=== PATIENT | male | born 1950 | race Caucasian/White ===

== ENCOUNTER → 2016-08-18 | Outpatient (CLI) | payer BC ==
[~2016-08-18] MED LIST: MULT-506 PO
--- NOTE | 2016-08-18 15:03 | DIAGNOSTIC IMAGING REPORT ---
L-SPINE MIN 4 VIEWS ROUTINE CLINICAL HISTORY: Right leg radiculopathy COMPARISON STUDY: No previous studies for comparison. FINDINGS: No acute fractures are visualized. There is a grade 1 spondylolisthesis of L4 and L5. There are moderate multilevel degenerative changes. There are prominent anterior osteophytes at the thoracolumbar junction. There is facet joint arthropathy within the lower lumbar levels. IMPRESSION: Moderate multilevel degenerative change. No acute fractures or subluxations are visualized. No destructive lesions are visualized on conventional radiographic imaging Electronically signed by: Stef Pires M.D. 08/18/2016 3:01 PM
== END | disposition home or self-care (01) ==
LOC: C.RAD 14:25
PROVIDERS: ATTEND Family Medicine
DX: M51.16 Intervertebral disc disorders with radiculopathy, lumbar region (principal)

== ENCOUNTER → 2016-10-04 | Outpatient (CLI) | payer BC ==
--- NOTE | 2016-10-04 14:29 | DIAGNOSTIC IMAGING REPORT ---
MRI LUMBAR SPINE W/O CONTRAST CLINICAL HISTORY: Left leg radiculopathy. TECHNIQUE: Sagittal and axial T1, T2 and STIR images were obtained. COMPARISON STUDY: Conventional radiographic study dated 08/18/2016 OBSERVATIONS: There are no suspicious areas of marrow replacement. For numbering purposes, I have assumed that there are 12 pain of well-defined ribs. 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 L1-2: No disc protrusions or extrusions. No evidence of spinal canal or neural foraminal compromise. L2-3: There is a circumferential disc bulge with mild spinal stenosis. L3-4: There is a circumferential disc bulge with mild spinal stenosis. L4-5: There is a circumferential disc bulge with minimal triangular spinal canal narrowing. L5-S1: There is a circumferential disc bulge with moderate spinal stenosis. There is facet joint arthropathy. The conus medullaris and cauda equina appear normal. IMPRESSION: 1. 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 Please see numbering system as annotated on the PACS images 2. Multilevel disc bulges with mild spinal stenosis the L2-3, L3-4, and L4-5 levels. Moderate spinal stenosis at the L5-S1 level. Again please note that this numbering scheme assumes that there is lumbarization of the S1 vertebra. Electronically signed by: Stef Pires M.D. 10/04/2016 2:28 PM Dictated Date/Time: 10/04/2016 2:19 PM
== END | disposition home or self-care (01) ==
LOC: C.MRI 13:22
PROVIDERS: ATTEND Physical Medicine & Rehabilitation
DX: M54.16 Radiculopathy, lumbar region (principal)

== ENCOUNTER → 2017-09-02 | Outpatient (CLI) | payer OTHER ==
--- NOTE | 2017-09-02 12:00 | DIAGNOSTIC IMAGING REPORT ---
CHEST 2 VIEWS ROUTINE HISTORY: R05 - COUGH COMPARISON: Chest 05/07/2016. FINDINGS: The heart remains borderline enlarged. The lungs are clear. No pleural effusions. No pneumothorax. IMPRESSION: No significant change compared to the prior study. No acute process. Electronically signed by: Alfonso Cuellar M.D. 09/02/2017 11:58 AM Dictated Date/Time: 09/02/2017 11:56 AM
== END | disposition home or self-care (01) ==
LOC: C.RAD1850 11:07
PROVIDERS: ATTEND Student in an Organized Health Care Education/Training Program
DX: R05 Cough (principal)

== ENCOUNTER → 2017-12-22 | Outpatient (CLI) | payer OTHER ==
--- NOTE | 2017-12-23 11:20 | PULMONARY FUNCTION TEST ---
Prebronchodilator spirometry suggests the presence of minimal small airways disease. There was a modest response to bronchodilator as evidenced by improved flow measured at low lung volumes. This may suggest the presence of early reversible airways disease. Lung volumes and diffusion capacity were not measured. Clinical correlation is needed.
== END | disposition home or self-care (01) ==
LOC: C.RC 12:46
PROVIDERS: ATTEND Family Medicine
DX: Z87.898 Personal history of other specified conditions (principal)

== ENCOUNTER 2023-10-19 05:16 | Observation (INO) ==
--- NOTE | 2023-09-29 10:25 | PAT Medication Instructions ---
Medication Instructions Date of Service September 29, 2023 Home Medications Medication Instructions Recorded Breo Ellipta 100 mcg-25 mcg/dose 1 inh inhalation DAILY #60 ea 06/01/23 powder for inhalation (fluticasone furoate-vilanterol) amlodipine 5 mg tablet (Norvasc) 5 mg PO QAM multivitamin 1 tab PO QAM cholecalciferol (vitamin D3) 50 mcg (2,000 unit) capsule (Vitamin D3) 50 mcg PO QAM Breo Ellipta 100 mcg-25 mcg/dose powder for inhalation (fluticasone furoate- vilanterol) 1 inh inhalation DAILY cetirizine 10 mg capsule (All Day Allergy (cetirizine)) 10 mg PO DAILY PRN allergy relief albuterol sulfate 90 mcg/actuation aerosol inhaler 1 inh inhalation QID PRN sob fluticasone propionate 50 mcg/actuation nasal spray,suspension (Flonase Allergy Relief) 1 spray intranasal DAILY levothyroxine 25 mcg tablet 25 mcg PO QAM losartan 50 mg tablet 50 mg PO QAM rosuvastatin 5 mg tablet 5 mg PO HS DO NOT take the morning of surgery multivitamin 1 tab PO QAM cholecalciferol (vitamin D3) 50 mcg (2,000 unit) capsule (Vitamin D3) 50 mcg PO QAM cetirizine 10 mg capsule (All Day Allergy (cetirizine)) 10 mg PO DAILY PRN allergy relief losartan 50 mg tablet 50 mg PO QAM Take morning of surgery With a small sip of water, OTHERWISE NOTHING TO EAT OR DRINK AFTER MIDNIGHT: amlodipine 5 mg tablet (Norvasc) 5 mg PO QAM Breo Ellipta 100 mcg-25 mcg/dose powder for inhalation (fluticasone furoate- vilanterol) 1 inh inhalation DAILY albuterol sulfate 90 mcg/actuation aerosol inhaler 1 inh inhalation QID PRN sob (use if needed; please bring with you to hospital day of surgery if possible) fluticasone propionate 50 mcg/actuation nasal spray,suspension (Flonase Allergy Relief) 1 spray intranasal DAILY levothyroxine 25 mcg tablet 25 mcg PO QAM Take evening before surgery cetirizine 10 mg capsule (All Day Allergy (cetirizine)) 10 mg PO DAILY PRN allergy relief (if needed) albuterol sulfate 90 mcg/actuation aerosol inhaler 1 inh inhalation QID PRN sob (if needed) rosuvastatin 5 mg tablet 5 mg PO HS Other Notes If you have any questions please call us at [phone] or [phone] or [phone] or [phone]
--- NOTE | 2023-10-03 09:48 | Anesthesiology Consultation ---
Date of Service October 03, 2023 Assessment & Plan (1) Encounter for pre-operative examination: - pulmonology office visit 08/04/23 [place]: "... optimized from a pulmonary perspective. He should continue to use his inhalers in the preoperative and perioperative periods. No indication for additional testing. He is appropriate to undergo anesthesia. We would be happy to assist should he develop any respiratory issues in the preoperative, perioperative, or postoperative periods. Early ambulation. DVT prophylaxis per orthopedic surgery..." - Outpatient joint assessment: Patient is currently scheduled for inpatient pathway. If re-evaluated and patient/surgeon requests outpatient pathway, patient is acceptable candidate for outpatient joint program from anesthesia standpoint pending surgeon's office assessment of pt motivation/support/completion of same day joint program preop requirements. Chart Review Chart Review: Acceptable Risk for Surgery and Patient seen in Pre Admission Testing Teaching & Discussion Pre-Anesthesia Teaching/Discussion Notes: Instructed NPO after midnight before surgery, except medications with 15 cc of water. Medication instructions provided according to the PAT guidelines. History Surgery Operation Date: 10/19/23 07:00 Proposed Procedures p Left Total Knee Arthroplasty - Sergey Douglas MD Height/Weight Height: 5 ft 7 in Weight: 85.3 kg Allergies Allergy/AdvReac Type Severity Reaction Status Date / Time Sulfa (Sulfonamide Allergy Intermediate RASH/REDNESS Verified 09/28/23 12:33 Antibiotics) ALL OVER BODY Penicillins Allergy Unknown listed in Verified 10/03/23 10:44 [facility] EMR Medications Home Medications Medication Instructions Recorded Confirmed Last Taken amlodipine 5 mg tablet (Norvasc) 5 mg PO QAM 11/28/18 09/28/23 07/12/22 multivitamin 1 tab PO QAM 11/28/18 09/28/23 07/12/22 cholecalciferol (vitamin D3) 50 50 mcg PO QAM 10/26/21 09/28/23 07/12/22 mcg (2,000 unit) capsule (Vitamin D3) Breo Ellipta 100 mcg-25 mcg/dose 1 inh inhalation DAILY #60 ea 06/01/23 09/28/23 Unknown powder for inhalation (fluticasone furoate-vilanterol) cetirizine 10 mg capsule (All Day 10 mg PO QPM 08/01/23 10/03/23 Unknown Allergy (cetirizine)) albuterol sulfate 90 mcg/actuation 1 inh inhalation QID PRN sob 09/28/23 09/28/23 Unknown aerosol inhaler fluticasone propionate 50 1 spray intranasal DAILY 09/28/23 09/28/23 Unknown mcg/actuation nasal spray,suspension (Flonase Allergy Relief) levothyroxine 25 mcg tablet 25 mcg PO QAM 09/28/23 09/28/23 Unknown losartan 50 mg tablet 50 mg PO QAM 09/28/23 09/28/23 Unknown rosuvastatin 5 mg tablet 5 mg PO HS 09/28/23 09/28/23 Unknown Past Medical History Medical History (Updated 10/03/23 @ 10:44 by Ashlyn Loja PA-C) Asthma controlled, stable per pt-has not used rescue inhaler for 6 months History of colitis 1 yr ago Hx of gout > 1 yr ago Hyperlipidemia Hypertension controlled, stable per pt Hypothyroidism new dx Lumbar stenosis L5- S1 Nodule of esophagus "benign" Right lumbar radiculopathy Spondylolisthesis of lumbosacral region Spondylolisthesis, lumbar region Patient denies h/o stroke, seizures, heart attack, heart failure, DM, blood clots/DVTs or blood transfusions. Exercise / Class Metabolic Activity II 4-5 Yardwork/Stairs/Walk up hill (denies chest discomfort or shortness of breath with 1 FOS) Past Family History Family History Sister Family history of diabetes mellitus Uncle Family history of esophageal cancer Grandmother (Paternal) Family history of diabetes mellitus Grandmother (Maternal) Family history of diabetes mellitus Family/Other Family history of diabetes mellitus cousins Hypertension Mother Hypertension Heart disease Grandfather Stroke Father Cancer Other Allergies Asthma No family history of adverse response to anesthesia No family history of bleeding disorder Past Surgical History Surgical History History of arthroscopy RT/LEFT KNEE History of colonoscopy History of open reduction and internal fixation (ORIF) procedure 1999--RT TIB/FIB History of surgery right femur fx 1961--pin placed, later removed Retinal tear of both eyes laser repair Status post epidural steroid injection numerous times Wylie teeth removed Past Anesthesia History No Hx of Anesthesia Complications and No Family Hx of Anesthesia Complications History of PONV No Hx of PONV and No Hx of Motion Sickness Social History Smoking Status: Never smoker Do You Dip or Chew Tobacco: No Hx Alcohol Use: Yes Alcohol type: beer and wine alcohol intake frequency: holidays/special occasions only substance use type: does not use Review of Systems Snoring, denies witnessed apneas. Patient denies chest pain, shortness of breath, dyspnea on exertion, reflux, fever, chills, cough, wheezing, or palpitations. Physical Exam Vital Signs Vitals BP 143/87 P 67 TEMP 98.4 SP02 94% on RA RESP 18 Physical Patient resting comfortably in chair in no acute distress, alert and oriented, responding appropriately throughout visit Full cervical extension range of motion without pain TMD 3.5 finger breadths Mallampati Score 2 Dentition: several crowns; denies chipped or loose teeth, implants or bridges Lungs: normal respiratory effort. Good air movement, clear throughout to auscultation, no adventitious breath sounds Cardiac: regular rate and rhythm, no murmurs noted Carotid arteries: negative bruit bilat Lab Results Anesthesia Preop Results Results Anesthesia Widget: WBC 8.31 K/ul (4.8-10.8) 10/03/23 Hgb 13.6 g/dl (14.0-18.0) L 10/03/23 Hct 40.9 % (42.0-52.0) L 10/03/23 Plt 199 K/uL (130-400) 10/03/23 PT 10.6 Seconds (9.0-12.0) 10/03/23 PTT 27 Seconds (21-31) 10/03/23 INR 1.0 (0.9-1.1) 10/03/23 Urine Color Yellow 10/03/23 Urine Appearance Clear (Clear) 10/03/23 Urine pH 6.0 (4.5-7.5) 10/03/23 Urine Specific [place] 1.005 (1.000-1.030) 10/03/23 Urine Protein Negative (Negative) 10/03/23 Urine Glucose (UA) Negative (Negative) 10/03/23 Urine Ketones Negative (Negative) 10/03/23 Urine Blood Negative (Negative) 10/03/23 Urine Nitrite Negative (Negative) 10/03/23 Urine Bilirubin Negative (Negative) 10/03/23 Urine Urobilinogen Negative (Negative) 10/03/23 Urine Leukocyte Esterase Negative (Negative) 10/03/23 Blood Type A Positive 10/03/23 Antibody Screen NEGATIVE 10/03/23 Testing Laboratory Results 09/07/23 SODIUM: 140 POTASSIUM: 4.6 CHLORIDE: 104 CO2: 30 BUN: 16 CREATININE: 1 GLUCOSE: 97 Electrocardiogram Date: 10/03/23 Sinus rhythm with marked sinus arrhythmia, rate 64 bpm Echocardiogram Date: 09/22/22 EF 65% No LV regional wall motion abnormalities Asymmetric basal septal hypertrophy of the elderly Grade I diastolic dysfunction Dilated ascending aorta 3.8 cm No significant valvular abnormalities
[~2023-10-19 05:16] MED LIST changes: +ALLERGY Noted to ORDERED Medication SCH; -MULT-506 PO
[2023-10-19] MEDS: LR 500ML BOLUS, THEN 15ML/HR IV SCH (05:45)
[2023-10-19] MEDS: LR 60ML/HR IV SCH (05:45)
[2023-10-19] MEDS ORDERED: ROPIVACAINE 0.5% 5 MG/ML 30 ML VIAL ONE (06:24)
[2023-10-19] MEDS ORDERED: fentaNYL citrate PF 100 MCG/2 ML VIAL ONE (06:30)
[2023-10-19] MEDS ORDERED: MIDAZOLAM HCL 1 MG/ML 2ML VIAL ONE (06:30)
[2023-10-19] MEDS ORDERED: PROPOFOL IV EMULSION 10 MG/ML 20 ML VIAL IV ONE ×3 (06:32→07:48)
--- NOTE | 2023-10-19 06:32 | History & Physical Bridge Note ---
Date of Service October 19, 2023 History & Physical Bridge Note I have examined the patient, reviewed the History & Physical and in the interval since the performance of the History & Physical I have noted the following changes of clinical significance:consent obtained/site verified. no changes noted
[2023-10-19] MEDS: ceFAZolin 2,000 MG/15 ML IV PUSH IV ONE (06:34)
[2023-10-19] MEDS ORDERED: HYDROmorphone INJ 1 MG/ML SYRINGE IV PRN ×2 (06:36→09:48)
[2023-10-19] MEDS ORDERED: KETOROLAC 30 MG/ML VIAL IV PRN (06:36)
[2023-10-19] MEDS ORDERED: ePHEDrine sulfate 50 MG/ML AMP IV PRN (06:36)
[2023-10-19] MEDS ORDERED: ATROPINE SULFATE 0.1 MG/ML 10ML SYR IV PRN (06:36)
[2023-10-19] MEDS ORDERED: ONDANSETRON INJ 2 MG/ML 2 ML VIAL IV PRN (06:36)
[2023-10-19] MEDS: TRANEXAMIC ACID 1,000 MG **IV Pre-op IV SCH (06:41)
[2023-10-19] MEDS: ceFAZolin 2000MG 2,000 MG/15 ML SYR IV SCH ×2 (06:56→14:58)
[2023-10-19] MEDS ORDERED: ONDANSETRON INJ 2 MG/ML 2 ML VIAL ONE ×2 (07:15)
[2023-10-19] MEDS: ORTHO JOINT ANESTHETIC ONE (07:28)
[2023-10-19] MEDS: TRANEXAMIC ACID 1,000 MG **IV Intra-op IV SCH (08:00)
[2023-10-19] MEDS: ROPIVACAINE 0.5% HCL/PF 246 MG, Ketorolac (*for OR use only*) 30 MG, EPINEPHrine 30MG/3... INFIL SCH (08:25)
--- NOTE | 2023-10-19 08:32 | Post Operative Brief Note ---
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
--- NOTE | 2023-10-19 08:35 | Operative Report ---
Post Operative Report Pre & Post Diagnosis Operation Date: 10/19/23 07:00 <No data on this case meets the specified criteria> Osteoarthritis left knee with flexion varus deformity pre and postop diagnosis same I identified the patient and participated in the time-out.: Yes Procedure Operation Date: 10/19/23 07:00 <No data on this case meets the specified criteria> Cemented left total knee replacement Surgeon Sergey Douglas MD Alarm Service Technician ELA/has been Estimated Blood Loss 25 Findings Consistent with Post-Op Diagnosis Grade 4 disease flexion varus deformity Fluids 1400 cc Specimens Bone pathology Drains None Complications None Indications Severe pain failed conservative management over the years Description of Procedure After the patient was appropriate notified site verified consent verified antibiotics confirmed to be given the left lower extremity was prepped and draped use routine fashion and a tourniquet inflated to 275 mmHg after [place] limb with a rubber Esmarch bandage for total of 52 minutes. Midline exposure was utilized parapatellar throughout any performed synovectomy completed. Distal femur entered after osteophytes removed. Cruciates resected tibia subluxated. Remaining meniscal remnants removed. Distal femur cut at 11 mm proximal tibia 4 mm the extension and flexion gaps were excellent with a 6 mm spacer. The femur was sized to a size 6 appropriate cutting block applied and the anterior posterior, chamfer cuts then made flexion gap was checked and was excellent. Posterior capsule was then injected with Ortho mix. The box cut was then made to size a 6 well. The tibia was then subluxated and broached and reamed to a size 6. 6 mm spacer posterior cruciate substituting allowed excellent range of motion and excellent tracking of the patella good midrange and full flexion stability and full extension. The patella was then resurfaced resecting about 10 mm. Trial holes were made in the patella seating button tracked well. Ortho mix was then injected all about the knee the area was then irrigated after all trial implants were removed with Betadine and soaked for about a minute and then Pulsavac and then the permanent cemented in position tibia femur patella in that order at 12 minutes the tourniquet was deflated at 14 minutes the knee was inspected no cement removal was required the trial s pacer was removed the wound was irrigated with Pulsavac Betadine and then the permanent liner seated in the knee reduced and closed at 40 degrees of flexion with #2 Vicryl 2-0 Vicryl and standstill clips appropriate dressing applied the patient transferred recovery in satisfactory condition having tolerated the procedure well. Summary of implants size 6 left femur size 6 rotating platform tray size 41 patella 6 x 6 mm rotating platform insert this is the ATT UNE total knee system from [employer]. DVT prophylaxis per protocol to start tomorrow. I attest to the content of the Intraoperative Record and any orders documented therein. Any exceptions are noted below.
--- NOTE | 2023-10-19 08:38 | Discharge Summary ---
Date of Service October 20, 2023 Admission HPI Per Admitting Provider Severe left knee pain admitted for elective left total knee replacement Principal Diagnosis Osteoarthritis with flexion varus deformity left knee Discharge Data Allergies Allergy/AdvReac Type Severity Reaction Status Date / Time Sulfa (Sulfonamide Allergy Intermediate RASH/REDNESS Verified 10/19/23 05:35 Antibiotics) ALL OVER BODY Vaccinations None Consultations None Procedures Performed Operation Date: 10/19/23 07:00 Actual Procedures p Left Total Knee Arthroplasty(Left) - Sergey Douglas MD Ordered Studies 10/19/23 05:00 US - OR guided needle placemen Routine Hospital Course (1) Status post left knee replacement: Care management pathway for total knee replacement Total Time Total Time Spent Total Time Spent (In Minutes): 5 minutes Discharge Plan Discharge Items Reason For Visit: Left Knee Degenerative Joint Disease Discharge Diagnosis: Same Condition on Discharge: Good Activity: Per Instructions section Lifting: Wait until after follow-up appointment Bathing: Keep incision dry Sexual Activity: Wait until after follow-up appointment Exercise/Sports: Wait until after follow-up appointment Weightbearing: Left weightbearing Non-emergency contact: Surgeon Call non-emergency contact if: your temperature is above 101.5, your wound has increased redness and your wound has increased drainage Follow-up/Referrals: Altaf Vaughn DO [Primary Care Provider] - Mike Muñoz PA-C [Physician Sterile Products Processor] - 11/03/23 3:00 pm Diet: Regular and Carb Consistent or DM2 Addtl Attending Provider Instructions: New Medicine: * You will likely be taking one or more of these medications: 1. Percocet - Take, as directed, when you need it, every four to six hours to control your pain. 2. Iron Sulfate - Take three times each day for the month after surgery to help you replace the blood lost during surgery. 3. Eliquis - Thins your blood to lessen the chance of forming a blood clot. * The most common side effects of pain medicine and iron are nausea and constipation. If nausea or constipation is too much of a problem or if you have any questions about your new medicines or doses, call [facility] at . We will try to help you manage these issues. "VERY IMPORTANT TO READ AND REVIEW" Blood Clots and Blood Thinning Medicine: * You are given Eliquis during the immediate post-operative period to lessen the risk of blood clots forming in your legs and/or lungs. Eliquis is usually given for 2-4 weeks after surgery. Pain: * The immediate post-operative period after knee replacement surgery is often quite painful. * You are given a prescription for pain medicine. You should take it, as directed, when you need it, especially before physical therapy and before going to bed. Pain that interferes with sleep is very common and can last several months. * You will likely need pain medicine for the first four to six weeks. It will not stop all of the pain. The pain will lessen and as you feel better, you may change to milder pain medicine such as Tylenol. * The most common side effects of pain medicine are nausea and constipation, so don't take more than you need. Physical Therapy: * You will have physical therapy two or three times each week for four to six weeks after your surgery in order to regain your knee range of motion and to retrain your knee to work properly. * It is just as important to make sure you are getting your knee perfectly straight as it is to regain your knee bend. * Taking a pain pill an hour before therapy can help you have a more productive and comfortable therapy session if needed. Home Exercise: * You were shown a series of exercises (heel props, heel slides, etc.) in the hospital. Do these exercises three to four times each day including the exercises you were shown in physical therapy. Walking: * Get up and walk several times each day. For the first four weeks, try not to stand or walk for more than one hour at a time. If you do stand or walk for more than one hour, you will not hurt anything, but your knee and leg will likely swell. * As you feel comfortable, you may change from the walker or crutches to a cane and then to independent walking. SELF CARE INSTRUCTIONS AFTER TOTAL KNEE REPLACEMENT A. You may need to continue a physical therapy program after discharge from the hospital. There are several options available to you. Your doctor will assist you in selecting the best one for you. 1. An out-patient facility 2 to 3 times a week for therapy or home therapy. 2. Continue working on all exercises taught to you in the hospital. Your goals should be to increase bending of your knee to 90 degrees and beyond and to fully straighten your knee. B. You may progress at your own pace from walking with a walker or crutches to a cane; then to no assistive devices. C. Make walking a part of your daily routine. Be up as much as comfortable with rest periods throughout the day. Rest with leg elevation is very important. Use the ice wrap frequently for the first 3-4 weeks. D. There are no restrictions on activities. You may ride in a car, shop, participate in systems design engineer and all social activities. E. Wear the long elastic stockings (MARLENI hose) 20 hours a day for six weeks after surgery. They can be removed several times a day for laundering and for a shower. F. Do not place a pillow behind your knee when resting. A pillow at your ankle is okay. VERY IMPORTANT TO READ AND REVIEW A. Take Eliquis (blood thinning medications) as directed by your doctor. Take as prescribed. B. There are a few signs you need to watch for after you are home. Call [facility] if you notice any of the followin. Increased severe knee pain. Some pain is expected especially when you exercise. 2. Increased swelling in your leg or knee; pain or swelling of the calf muscle in either lower leg. 3. Any fluid drainage from the incision. 4. Shortness of breath or chest pain. C. Please call [facility] at if you have any concerns or questions about your operation or recovery. The doctor or his nurse will return your call promptly. D. You must take antibiotics before dental work, bladder, bowel or other surgery. Call the office to obtain a prescription at least 2 days prior to your appointment. * CALL IF INCREASED PAIN, REDNESS, DRAINAGE OR FEVER GREATER THAT 101. * Sutures should be removed 12-14 days after surgery unless you are on chronic steriods, then it will be 14-18 days after surgery. Call your doctor if: * Temperature above 101 degrees F. * Pain not relieved by pain medicine ordered. * Increased drainage or redness from incision. * Notify your doctor with any questions or concerns. Pending Studies at Discharge: Yes (Bone pathology) Stand-Alone Forms: My [facility] Medications and DC Order Prescriptions: No Action fluticasone furoate-vilanterol [Breo Ellipta] 100-25 mcg/dose blister with device 1 inh inhalation DAILY Qty: 60 2RF All Day Allergy (cetirizine) 10 mg capsule 10 mg PO QPM multivitamin Tablet 1 tab PO QAM amlodipine [Norvasc] 5 mg Tablet 5 mg PO QAM cholecalciferol (vitamin D3) [Vitamin D3] 50 mcg (2,000 unit) Capsule 50 mcg PO QAM Patient Comments: none for last week or two losartan 50 mg Tablet 50 mg PO QAM levothyroxine 25 mcg Tablet 25 mcg PO QAM albuterol sulfate 90 mcg/actuation Hfa Aerosol Inhaler 1 inh INHALATION QID PRN (Reason: sob) fluticasone propionate [Flonase Allergy Relief] 50 mcg/actuation [place],Suspension 1 spray INTRANASAL DAILY Rx Instructions: administer into each nostril rosuvastatin 5 mg Tablet 5 mg PO HS Admission Data Admit Date/Time: 10/19/23 08:48 Attending Provider: Sergey Douglas Admit Provider: Sergey Douglas Primary Care Provider: Altaf Vaughn Other Providers: [facility],Home Health
--- NOTE | 2023-10-19 08:39 | Orthopedic Progress Note ---
Date of Service October 19, 2023 Orthopedic Progress Note Status post left total knee replacement tolerated well with with no complaints of chest pain shortness breath fever chills nausea vomiting headache. Vital signs are stable he is afebrile. Wound dressing clean dry and intact. X- rays pending. Assessment doing well status post total knee replacement. Attempted to contact and she did not answer the phone left a voicemail message.
--- NOTE | 2023-10-19 08:50 | Operative Report ---
Post Operative Report Pre & Post Diagnosis Operation Date: 10/19/23 07:00 Pre-Op Diagnosis: Left Knee Degenerative Joint Disease Post-Op Diagnosis: Left Knee Degenerative Joint Disease I identified the patient and participated in the time-out.: Yes Procedure Operation Date: 10/19/23 07:00 Actual Procedures p Left Total Knee Arthroplasty(Left) - Sergey Douglas MD Surgeon Sergye Douglas MD [employer] ELA/has been Estimated Blood Loss 25 Findings Consistent with Post-Op Diagnosis Same as postoperative diagnosis. Specimens The resected portions of the femur and the tibia. Description of Procedure Please see detailed operative note. I attest to the content of the Intraoperative Record and any orders documented therein. Any exceptions are noted below.
--- NOTE | 2023-10-19 09:05 | XRay Report ---
XR knee LT 1 or 2V routine CLINICAL HISTORY: S/P L TKA TECHNIQUE: 2 views of the left knee were obtained. Comparison: Comparison is made to knee radiograph 10/03/2023 FINDINGS: Patient is status post total knee arthroplasty with expected postsurgical changes including soft tiss ue swelling and subcutaneous emphysema. No periarticular lucency or hardware fracture is seen. IMPRESSION: Expected postoperative appearance status post placement of total knee arthroplasty. ACT 112: Negative or not required by law. Electronically signed by: Flavio Farris M.D. 10/19/2023 9:03 AM
[2023-10-19] MEDS ORDERED: TAMSULOSIN HCL 0.4 MG CAP PO PRN (09:48)
[2023-10-19] MEDS ORDERED: HYDROmorphone INJ 0.5 MG/0.5 ML SYR IV PRN (09:48)
[2023-10-19] MEDS ORDERED: NON-FORMULARY MEDICATION (Multivitamin Tablet) PO SCH (09:48)
[2023-10-19] MEDS ORDERED: oxyCODONE HCL IR 5 MG TAB (IMMEDIATE RELEASE) PO PRN (09:48)
[2023-10-19] MEDS ORDERED: METOCLOPRAMIDE HCL INJ 5 MG/ML 2 ML VIAL IV PRN (09:48)
[2023-10-19] MEDS ORDERED: bisacodyL 10 MG SUPP PR PRN (09:48)
[2023-10-19] MEDS ORDERED: ALBUTEROL HFA 8 GM INHALER INH PRN (09:48)
[2023-10-19] MEDS ORDERED: MAGNESIUM HYDROXIDE SUSP 30 ML UDC PO PRN (09:48)
[2023-10-19] MEDS ORDERED: NALOXONE HCL 0.4 MG/1 ML VIAL/CARP IV PRN (09:48)
--- NOTE | 2023-10-19 09:58 | Anesthesiology Progress Note ---
Date of Service October 19, 2023 Anesthesia Post Procedure Vital Signs Vital Signs: Temp Pulse Pulse Resp BP Pulse Ox O2 Del Method 10/19/23 09:40 36.3 C L 57 L 17 122/62 95 Room Air 10/19/23 09:30 36.3 C L 59 L 14 119/67 95 Room Air 10/19/23 09:20 58 L 24 115/64 97 Oxymask 10/19/23 09:10 59 L 14 124/67 99 Oxymask 10/19/23 09:00 57 L 16 123/62 96 Oxymask 10/19/23 08:50 80 17 116/64 97 Oxymask 10/19/23 08:42 36.5 C 68 16 117/65 97 Oxymask 10/19/23 05:37 36.5 C 66 18 148/83 H 96 Room Air O2 Flow Rate 10/19/23 09:40 10/19/23 09:30 10/19/23 09:20 3 10/19/23 09:10 3 10/19/23 09:00 4 10/19/23 08:50 4 10/19/23 08:42 5 10/19/23 05:37 Transfer of Care Handoff Completed per policy Notes Mental Status: alert / awake / arousable Patient Amnestic to Procedure: Yes Nausea / Vomiting: adequately controlled Pain: adequately controlled Airway Patency, RR, SpO2: stable & adequate BP & HR: stable & adequate Hydration State: stable & adequate Neuraxial Anesthesia: was administered and sensory block is resolving Anesthetic Complications: no major complications apparent
[2023-10-19] MEDS: SODIUM CHLORIDE 0.9% 1,000 ML IV SCH (10:04)
[2023-10-19] MEDS: FLUTICASONE PROPIONATE NA SPR 16 GM BTL NAE SCH (10:38)
[2023-10-19] MEDS: FLUTICASONE/VILANTEROL 100/25MCG 14 PUFFS/INHALER INH SCH (10:40)
[2023-10-19] MEDS: LEVOTHYROXINE SODIUM 25 MCG TABLET PO SCH (10:40)
[2023-10-19] MEDS: LOSARTAN POTASSIUM 50 MG TAB PO SCH (10:41)
[2023-10-19] MEDS: MULTIVITAMIN TAB PO SCH (10:41)
[2023-10-19] MEDS: amLODIPine BESYLATE 5 MG TAB PO SCH (10:41)
[2023-10-19] MEDS: CHOLECALCIFEROL 25 MCG (1000 UNITS) TAB PO SCH (10:42)
[2023-10-19] MEDS: DOCUSATE SODIUM 100 MG CAP PO SCH (10:42)
[2023-10-19] MEDS: KETOROLAC 30 MG/ML VIAL IV SCH (10:42)
--- OUTSIDE RECORDS SUMMARY | 2023-10-19 11:58 | External Medical Summary | Continuity of Care Document ---
Author Name Unknown Organization [facility] [address] [place] [id number] Care Team Providers Care Marzipan Maker Name Role Phone Altaf Vaughn Primary Care Physician [phone] Encounter [facility] [id number] Date(s): 10/12/23 - 10/12/23 [facility] [address] [address] [phone] Encounter Diagnosis Encounter for preoperative assessment(Discharge Diagnosis) - 10/12/23 DJD (degenerative joint disease) of knee(Discharge Diagnosis) - 10/12/23 Benign essential HTN(Discharge Diagnosis) - 10/12/23 Acquired hypothyroidism(Discharge Diagnosis) - 10/12/23 Anemia(Discharge Diagnosis) - 10/12/23 Hyperlipidemia(Discharge Diagnosis) - 08/22/23 Elevated TSH(Discharge Diagnosis) - 08/22/23 Prostate cancer screening(Discharge Diagnosis) - 08/22/23 History of BPH(Discharge Diagnosis) - 08/22/23 Discharge Disposition: Home or Self Care Attending Physician: DO Vaughn Franklin J Allergies, Adverse Reactions, Alerts Substance Reaction Severity Status PCN (penicillin) hives Resolved shellfish Gout Moderate Resolved sulfa drugs erythema of skin Active Assessment and Plan Extracted from: Title:General Exam * Author:DO Vaughn Franklin J Date:10/12/23 Impression and Plan Diagnosis Encounter for preoperative assessment ([id number] Z01.818, Discharge, Medical). Elevated TSH (FBQ24-JV R79.89, Discharge, Medical). DJD (degenerative joint disease) of knee (PSX45-ZD M17.9, Discharge, Medical). Benign essential HTN (OON98-YG I10, Discharge, Medical). Acquired hypothyroidism (LOA02-MO E03.9, Discharge, Medical). Plan: Preoperative Exam Reassuring/negative cardiovascular review of systems, normal resting echocardiogram October,. He is appropriate for the proposed procedure without further testing. Hypothyroidism (new) Continue levothyroxine 25 mcg daily Will check TSH and free T4 approximately 2-4 weeks postoperative Likely will need further titration of his Synthroid thereafter Systolic murmur Murmur is again heard today, although echocardiogram last year showed no significant valvular pathology Does have very mild ascending aortic dilatation (3.8) Will schedule follow-up echocardiogram later this spring/early summer HTN Excellent control BMP completed here in late August 2023 demonstrated preserved renal function and normal serum potassium Lymphocytotic colitis Gastroenterology note reviewed Avoid NSAIDs postoperative Borderline anemia His hemoglobin at the hospital lab was 13.6; while this would be normal according to our lab reference values, was marked as low based on the hospital reference values Nonconcerning but will follow-up; discussed this may improve now that he is on thyroid supplementation; also discussed he may have a mild postoperative drop Recheck CBC when we recheck his TSH; discussed that it may take 3-6 months to normalize . Orders PowerOrders Laboratory: CBC w Platelets and Diff Request (Order): Routine, 10/12/2023 14:18 EST, Requested Timeframe In 4 Weeks Free T4 Request (Order): Routine, 10/12/2023 14:18 EST, Requested Timeframe In 4 Weeks TSH Request (Order): Routine, 10/12/2023 14:18 EST, Requested Timeframe In 4 Weeks Patient Care Ambulatory: Follow Up Appointment Ambulatory (Order): PRN, thyroid/anemia Appointment Type In Office, 20, Follow up With DO Roderick, Altaf Stevenson, early December Evaluation and Management: [id number] Outpatient Consult Lv 3 (Order): 10/12/2023 14:19 EST, 25, FAMILY MEDICINE, DJD (degenerative joint disease) of knee | Benign essential HTN | Acquired hypothyroidism | Anemia, FS, (30-39 Mins). Immunizations Given and Recorded Vaccine Date Status Refusal Reason influenza virus vaccine, inactivated 06/14/23 Lai rded influenza virus vaccine, inactivated 06/30/22 Give n influenza virus vaccine, inactivated 05/18/21 Give n influenza virus vaccine, inactivated 06/13/20 Lai rded influenza virus vaccine, inactivated 06/11/19 Give n influenza virus vaccine, inactivated 06/07/18 Give n influenza virus vaccine, inactivated 08/09/17 Give n SARS-CoV-2 (COVID-19) mRNA BNT-162b2 vax 1 07/06/21 Recorded SARS-CoV-2 (COVID-19) mRNA BNT-162b2 vax 2 05/15/21 Recorded SARS-CoV-2 (COVID-19) mRNA BNT-162b2 vax 3 11/13/20 Recorded SARS-CoV-2 (COVID-19) mRNA BNT-162b2 vax 4 10/23/20 Recorded zoster vaccine, inactivated 5 06/25/20 Recorded zoster vaccine, inactivated 6 03/31/20 Recorded tetanus/diphtheria/pertuss, acel (Tdap) 05/07/16 G iven tetanus/diphtheria/pertuss, acel (Tdap) 05/19/06 R ecorded pneumococcal 13-valent vaccine 05/07/16 Given pneumococcal 23-valent vaccine 05/02/15 Given hepatitis A adult vaccine 03/30/10 Recorded hepatitis A adult vaccine 12/29/06 Recorded zoster vaccine live 03/11/10 Recorded 1Result Comment: 2022-09-15: Historical information-source unspecified 2Result Comment: 2022-09-15: Historical information-source unspecified 3Result Comment: 2022-09-15: Historical information-source unspecified 4Result Comment: 2022-09-15: Historical information-source unspecified 5Result Comment: 2022-09-15: Historical information-source unspecified 6Result Comment: 2022-09-15: Historical information-source unspecified Medications Albuterol (Eqv-ProAir HFA) 90 mcg/inh inhalation aerosol Start: 04/29/22 12:01:00 EDT, See Instructions, Disp# 8.5 g, Refills: 3, INHALE 2 PUFFS BY MOUTH FOUR TIMES A DAY NEEDED FOR WHEEZING, Pharmacy: [id number] Start Date: 04/29/22 Status: Ordered amLODIPine 5 mg oral tablet Start: 05/02/23 9:26:00 EDT, See Instructions, Disp# 30 tab, Refills: 11, TAKE 1 TABLET BY MOUTH EVERY DAY, Pharmacy: [id number] Start Date: 05/02/23 Status: Ordered Breo Ellipta 100 mcg-25 mcg/inh inhalation powder INHALE 1 PUFF BY MOUTH EVERY DAY Start Date: 03/21/23 Status: Ordered Centrum Silver oral tablet Start: 04/13/13 9:00:00, , 1 tab, PO, Daily Start Date: 04/13/13 Status: Ordered cetirizine 5 mg oral tablet Start: 01/31/23 11:46:00 EDT, 1 tab, PO, Daily, PRN: as needed for allergy symptoms Start Date: 01/31/23 Status: Ordered Flonase 50 mcg/inh nasal spray Start: 03/27/21 11:36:00 EDT, 1 spray, each nostril, bid Start Date: 03/27/21 Status: Ordered fluticasone-vilanterol 100 mcg-25 mcg/inh inhalation powder Start: 09/16/23 14:02:00 EST Start Date: 09/16/23 Status: Ordered losartan 50 mg oral tablet Start: 05/02/23 9:26:00 EDT, See Instructions, Disp# 30 tab, Refills: 11, TAKE 1 TABLET BY MOUTH EVERY DAY, Pharmacy: [id number] Start Date: 05/02/23 Status: Ordered rosuvastatin 5 mg oral tablet Start: 05/02/23 9:24:00 EDT, See Instructions, Disp# 30 tab, Refills: 11, TAKE 1 TABLET BY MOUTH ATBEDTIME, Pharmacy: [id number] Start Date: 05/02/23 Status: Ordered Synthroid 25 mcg (0.025 mg) oral tablet Start: 09/16/23 9:46:00 EST, 1 tab, PO, Daily, Disp# 30 tab, Refills: 3, Pharmacy: [id number] Start Date: 09/16/23 Stop Date: 01/14/24 Status: Ordered Mental Status 10/12/23 Barriers to Learning one year None evide nt Mandatory Health Literacy Documentation Yes Health Literacy Communication Barriers N ever Primary Language Mongolian Problem List Condition Confirmation Course Effective Dates Status H ealth Status Informant BPPV (benign paroxysmal positional vertigo) Confirmed Active Cataracts, bilateral Confirmed Active Diarrhea Confirmed Active HTN (hypertension) Confirmed Active Hypothyroid Confirmed Active Knee pain 1 Confirmed 06/04/11 Active Knee pain 2 Confirmed Active LBP (low back pain) Confirmed Active Leg length discrepancy Confirmed Active Lumbar facet joint pain Confirmed Active Spondylolisthesis, lumbar region Confirmed Active Asthma, mild intermittent Confirmed Active Nocturia Confirmed Active Osteoarthritis of left knee Confirmed Active Stenosis of lumbosacral spine Confirmed Active Weight disorder Confirmed Active 1Left 2left Diagnosis Diagnosis Type Effective Dates Health Status Clinical Service Informant Hyperlipidemia Discharge Diagnosis 08/22/23 Non-Specified History of BPH Discharge Diagnosis 08/22/23 Non-Specified Elevated TSH Discharge Diagnosis 08/22/23 Non-Specified Prostate cancer screening Discharge Diagnosis 08/22/23 Non-Specified DJD (degenerative joint disease) of knee Discharge Diagnosis 10/12/23 Non-Specified Encounter for preoperative assessment Discharge Diagnosis 10/12/23 Non-Specified Acquired hypothyroidism Discharge Diagnosis 10/12/23 Non-Specified Anemia Discharge Diagnosis 10/12/23 Non-Specified Benign essential HTN Discharge Diagnosis 10/12/23 Non-Specified Procedures Procedure Date Related Diagnosis Body Site Status Colonoscopy 1 12/16/22 Completed Ultrasound--abdomen 2 11/23/22 Com pleted Laryngoscopy 3 12/15/21 Completed Hydrogen breath test with lactose 4 03/09/21 Completed X-ray of lower leg for bone length measurement 5 07/30/20 Completed Lumbar epidural steroid injection 05/28/20 Completed Punch biopsy of skin 6 01/25/19 Co mpleted Injection into lumbar epidural space 12/11/18 Completed Radiography of spine (procedure) 12/11/18 Completed Unknown 12/11/18 Completed Magnetic resonance imaging o f lumbar spine without contrast (procedure) 10/25/18 Completed Chest X-ray 7 07/17/18 Completed Plain chest X-ray (procedure) 07/17/18 Completed PFT 8 12/22/17 Completed Chest x-ray 9 09/02/17 Completed Colonoscopy 10 08/21/15 Completed Excision of semilunar cartil age of knee 10/05/11 Completed colonoscopy 09/15/04 Completed titanium edward right leg 12/14/99 Co mpleted Knee surgery Completed Leg Surgery (ORIF ankle, right) Completed right femur and tib/fib fxs Completed wisdom teeth Completed 1Impression: The rectum, sigmoid colon, descending colon, splenic flexure, transverse colon, hepaticflexure, ascending colon, cecum, ileocecal valve, recto-sigmoid colon and terminal ileum are normal. Biopsied. Pathology: Random colon bx: Colonic mucosa with mild epithelial lymphocytosis, favor lymphocytic colitis. 2No acute sonographic abnormality is identified. 31 mm very anterior vocal cord nodules 4Negative 51. Old post traumatic and postsurgical changes involving the right leg. 2. Leg length discrepancy with the left lower extremity measuring 21 mm longer than the right. 6central midline back 7Negative chest 8Prebronchodilator spirometry suggests the presence of minimal small airways disease. There was a modest response to bronchodilator as evidenced by improved flow measured at low lung volumes. This maysuggest the presence of early reversible airways disease. Lung volumes and diffusion cappacity werenot measured. Clinical correlation is needed. 9Impression: No significant change compared to the prior study no acute process 10COLO to cecum normal, repeat colo 10 yeaars. Results Laboratory List Name Date Comprehensive Metabolic Panel. (Comprehe nsive Metabolic Panel-[facility]) 08/22/23 Free T4. (Free T4-[facility]) 08/22/23 Lipid Panel. (Lipid Panel-[facility]) 08/22/23 PSA Diagnostic. (PSA Diagnostic-[facility]) 08/22/23 Thyroid Stimulating Hormone. (Thyroid St imulating Hormone-[facility]) 08/22/23 Most recent to oldest [Reference Range]: 1 Bilirubin, Total (QST) [0.2-1.2 mg/dL] 0 .5 mg/dL 1 (09/07/23 7:13 AM) Free T4-[facility] [0.8-1.8 ng/dL] 0.9 ng/dL 2 (09/07/23 7:13 AM) BUN-[facility] [7-25 mg/dL] 16 mg/dL 3 (09/07/23 7:13 AM) Creatinine-[facility] [0.70-1.28 mg/dL] 1.09 mg/dL 4 (09/07/23 7:13 AM) BUN/Creat Ratio-[facility] [6-22 (calc)] SEE NOTE: (calc) 5 (09/07/23 7:13 AM) Na-[facility] [135-146 mmol/L] 140 mmol/L 6 (09/07/23 7:13 AM) K-[facility] [3.5-5.3 mmol/L] 4.6 mmol/L 7 (09/07/23 7:13 AM) Cl-[facility] [98-110 mmol/L] 104 mmol/L 8 (09/07/23 7:13 AM) CO2-[facility] [20-32 mmol/L] 30 mmol/L 9 (09/07/23 7:13 AM) Ca-[facility] [8.6-10.3 mg/dL] 9.7 mg/dL 10 (09/07/23 7:13 AM) Globulin-[facility] [1.9-3.7 g/dL (calc)] 2.3 g/dL (calc) 11 (09/07/23 7:13 AM) A/G Ratio-[facility] [1.0-2.5 (calc)] 1.9 (ca lc) 12 (09/07/23 7:13 AM) Alkaline Phosphatase (ALP) [35-144 U/L] 46 U/L 13 (09/07/23 7:13 AM) Albumin, Serum [3.6-5.1 g/dL] 4.3 g/dL 1 4 (09/07/23 7:13 AM) PSA, Total (QST) [< OR = 4.00 ng/mL] 0.6 6 ng/mL 15 (09/07/23 7:13 AM) ALT [9-46 U/L] 21 U/L 16 (09/07/23 7:13 AM) eGFR-QST [> OR = 60 mL/min/1.73m2] 72 mL /min/1.73m2 17 (09/07/23 7:13 AM) Triglycerides-QST [<150 mg/dL] 78 mg/dL 18 (09/07/23 7:13 AM) Non HDL Chol-QST [<130 mg/dL (calc)] 68 mg/dL (calc) 19 (09/07/23 7:13 AM) HDL Chol-QST [> OR = 40 mg/dL] 53 mg/dL 20 (09/07/23 7:13 AM) Chol/HDLC Ratio-QST [<5.0 (calc)] 2.3 (c alc) 21 (09/07/23 7:13 AM) Cholesterol-QST [<200 mg/dL] 121 mg/dL 2 2 (09/07/23 7:13 AM) LDL Chol-QST 52 mg/dL (calc) 23 (09/07/23 7:13 AM) TSH (QST) [0.40-4.50 mIU/L] 9.01 mIU/L 2 4 *HI* (09/07/23 7:13 AM) AST [10-35 U/L] 23 U/L 25 (09/07/23 7:13 AM) Glucose-Qst [65-99 mg/dL] 97 mg/dL 26 (09/07/23 7:13 AM) Total Protein-QST [6.1-8.1 g/dL] 6.6 g/d L 27 (09/07/23 7:13 AM) 1Result Comment: Specimen Received d/t: 09/08/2023 18:11:00 Lab test performed by: [email or web address], [facility] [address] [place] [address] Reji Lopez MD 2Result Comment: Specimen Received d/t: 09/08/2023 18:11:00 Lab test performed by: [email or web address] [address] [place] [address] Reji Lopez MD 3Result Comment: Specimen Received d/t: 09/08/2023 18:11:00 Lab test performed by: [email or web address], [facility] [address] [place] [address] Reji Lopez MD 4Result Comment: Specimen Received d/t: 09/08/2023 18:11:00 Lab test performed by: [email or web address], [facility] [address] [place] [address]Jayna Lopze MD 5Result Comment: Not Reported: BUN and Creatinine are within reference range. Specimen Received d/t: 09/08/2023 18:11:00 Lab test performed by: [email or web address] [address] [place] [address]Jayna Lopez MD 6Result Comment: Specimen Received d/t: 09/08/2023 18:11:00 Lab test performed by: [email or web address], [facility] [address] [place] [address]Jayna Lopez MD 7Result Comment: Specimen Received d/t: 09/08/2023 18:11:00 Lab test performed by: [email or web address], [facility] [address] [place] [address]Jayna Lopez MD 8Result Comment: Specimen Received d/t: 09/08/2023 18:11:00 Lab test performed by: [email or web address], [facility] [address] [place] [address] Reji Lopez MD 9Result Comment: Specimen Received d/t: 09/08/2023 18:11:00 Lab test performed by: [email or web address], [facility] [address] [place] [address] Reji Lopez MD 10Result Comment: Specimen Received d/t: 09/08/2023 18:11:00 Lab test performed by: [email or web address], [facility] [address] [place] [address]Jayna Lopez MD 11Result Comment: Specimen Received d/t: 09/08/2023 18:11:00 Lab test performed by: [email or web address], [facility] [address] [place] [address] Reji Lopez MD 12Result Comment: Specimen Received d/t: 09/08/2023 18:11:00 Lab test performed by: [email or web address], [facility] [address] [place] [address] Reji Lopez MD 13Result Comment: Specimen Received d/t: 09/08/2023 18:11:00 Lab test performed by: [email or web address], [facility] [address] [place] [address] Rjei Lopez MD 14Result Comment: Specimen Received d/t: 09/08/2023 18:11:00 Lab test performed by: [email or web address], [facility] [address] [facility] [place] [place] [address]Jayna Lopez MD 15Result Comment: The total PSA value from this assay system is standardized against the WHO standard. The test result will be approximately 20% lower when compared to the equimolar-standardized total PSA (Alis Ralph). Comparison of serial PSA results should be interpreted with this fact in mind. This test was performed using the Siemens chemiluminescent method. Values obtained from different assay methods cannot be used interchangeably. PSA levels, regardless of value, should not be interpreted as absolute evidence of the presence or absence of disease. FASTING:UNKNOWN FASTING: UNKNOWN Specimen Received d/t: 09/08/2023 18:11:00 Lab test performed by: [email or web address] [address] [place] [address]Jayna Lopez MD 16Result Comment: Specimen Received d/t: 09/08/2023 18:11:00 Lab test performed by: [email or web address] [address] [place] [address]Jayna Lopez MD 17Result Comment: Specimen Received d/t: 09/08/2023 18:11:00 Lab test performed by: [email or web address] [address] [place] [address]Jayna Lopez MD 18Result Comment: Specimen Received d/t: 09/08/2023 18:11:00 Lab test performed by: [email or web address] [address] [place] [address]Jayna Lopez MD 19Result Comment: For patients with diabetes plus 1 major ASCVD risk factor, treating to a non-HDL-C goal of <100 mg/dL (LDL-C of <70 mg/dL) is considered a therapeutic option. Specimen Received d/t: 09/08/2023 18:11:00 Lab test performed by: [email or web address] [address] [place] [address] Reji Lopez MD 20Result Comment: Specimen Received d/t: 09/08/2023 18:11:00 Lab test performed by: [email or web address] [address] [place] [address]Jayna Lopez MD 21Result Comment: Specimen Received d/t: 09/08/2023 18:11:00 Lab test performed by: [email or web address] [address] [place] [address] Reji Lopez MD 22Result Comment: Specimen Received d/t: 09/08/2023 18:11:00 Lab test performed by: [email or web address] [address] [place] [address] Reji Lopez MD 23Result Comment: Reference range: <100 Desirable range <100 mg/dL for primary prevention; <70 mg/dL for patients with CHD or diabetic patients with > or = 2 CHD risk factors. LDL-C is now calculated using the Lu calculation, which is a validated novel method providing better accuracy than the Friedewald equation in the estimation of LDL-C. Celio SS et al. GIGI. 2013;310(19): 7077-0923 (http://education.Evtron/faq/GMN267) Specimen Received d/t: 09/08/2023 18:11:00 Lab test performed by: [email or web address] [address] [place] [address] Reji Lopez MD 24Result Comment: Specimen Received d/t: 09/08/2023 18:11:00 Lab test performed by: [email or web address] [address] [place] [address] Reji Lopez MD 25Result Comment: Specimen Received d/t: 09/08/2023 18:11:00 Lab test performed by: [email or web address] [address] [place] [address]Jayna Lopez MD 26Result Comment: Fasting reference interval Specimen Received d/t: 09/08/2023 18:11:00 Lab test performed by: [email or web address] [address] [place] [address]Jayna Lopez MD 27Result Comment: Specimen Received d/t: 09/08/2023 18:11:00 Lab test performed by: [email or web address] [address] [place] [address] Reji Lopez MD Vital Signs Most recent to oldest [Reference Range]: 1 Height 169.8 cm (10/12/23 1:24 PM) Patient Weight 86.5 kg (10/12/23 1:24 PM) Body Mass Index 30 kg/m2 (10/12/23 1:24 PM) Temperature [36.5-37.9 DegC] 36.6 DegC (10/12/23 1:24 PM) Heart Rate 82 bpm (10/12/23 1:24 PM) Respiratory Rate 16 br/min (10/12/23 1:24 PM) Blood Pressure 102/70mmHg (10/12/23 1:24 PM) Cuff Pulse Pressure 32 mmHg (10/12/23 1:24 PM) Social History Social History Type Response Smoking Status Never smoked cigaret juan Sex Outpatient Note * DO Vaughn Franklin J: PERFORM, SIGN, VERIFY MD Misael, Sergey Stevenson: REVIEW Event Display: .Outpt Note Authored Date: [id number] Patient: MILTON AGUAYO Age: 73 years Sex: Male : 1950 Associated Diagnoses: None Author: DO Vaughn Franklin J Visit Information Visit type: Pre Op Appointment. Chief Complaint 10/12/2023 13:21 EST Pre op for tkr left History of Present Illness 73 y/o male for pre-op left knee scheduled for 10/19/23 at [facility] (inpatient). He has had continued pain despite conservative care and physical therapy. Had Pre-op with anesthesia and orthopedics already. CBC/urine/coagulation panel normal (low normal HgB, although values would be considered normal in our lab reference values). In terms of cardiovascular review of systems, no chest pain or shortness of breath with activities of daily living; he can ascend 2 flights of stairs without cardiovascular imitations. He does note difficulty descending stairs, although this is a result of the knee, not cardiovascular etiology. He does have a history of a systolic murmur; this has been auscultated for several years. He had anechocardiogram in October, which did not show significant valvular pathology; left ventricular function was well-preserved, EF 65%. He did have a very mild dilatation of the ascending aorta (3.8). At his annual appointment earlier this month, we started him on low-dose thyroid supplementation (levothyroxine 25 mcg daily) after 3 consecutive elevated TSH values. As discussed previously, he willlikely need a higher dose of supplementation, though do not want to exacerbate potential side effects (tachycardia) prior to surgery. Review of Systems Constitutional: No fever, No chills. Eye: Negative. Ear/Nose/Mouth/Throat: Negative. Respiratory: No shortness of breath, No cough. Cardiovascular: No chest pain, No palpitations, No bradycardia, No tachycardia, No peripheral edema, No syncope. Neurologic: Alert and oriented X4. Health Status Allergies: Allergic Reactions (Selected) Severity Not Documented Sulfa drugs- Erythema of skin.. Current medications: (Selected) Prescriptions Prescribed Albuterol (Eqv-ProAir HFA) 90 mcg/inh inhalation aerosol: See Instructions, INHALE 2 PUFFS BY MOUTHFOUR TIMES A DAY NEEDED FOR WHEEZING, 8.5 g, 3 Refill(s) Synthroid 25 mcg (0.025 mg) oral tablet: 1 tab, PO, Daily, for 30 day, 30 tab, 3 Refill(s) amLODIPine 5 mg oral tablet: See Instructions, TAKE 1 TABLET BY MOUTH EVERY DAY, 30 tab, 11 Refill(s) losartan 50 mg oral tablet: See Instructions, TAKE 1 TABLET BY MOUTH EVERY DAY, 30 tab, 11 Refill(s) rosuvastatin 5 mg oral tablet: See Instructions, TAKE 1 TABLET BY MOUTH AT BEDTIME, 30 tab, 11 Refill(s) Documented Medications Documented Breo Ellipta 100 mcg-25 mcg/inh inhalation powder: INHALE 1 PUFF BY MOUTH EVERY DAY Centrum Silver oral tablet: 1 tab, PO, Daily, Flonase 50 mcg/inh nasal spray: 1 spray, each nostril, bid cetirizine 5 mg oral tablet: 1 tab, PO, Daily, PRN: as needed for allergy symptoms fluticasone-vilanterol 100 mcg-25 mcg/inh inhalation powder: . Problem list: Medical (Selected) Leg length discrepancy / ICD-9-CM 736.81 / Confirmed Knee pain / ICD-9-CM 719.46 / Confirmed Knee pain / SNOMED CT [id number] / Confirmed LBP (low back pain) / SNOMED CT [id number] / Confirmed Cataracts, bilateral / SNOMED CT 713782915 / Confirmed Weight disorder / SNOMED CT 466947849 / Confirmed Lumbar facet joint pain / SNOMED CT 5622807922 / Confirmed Stenosis of lumbosacral spine / SNOMED CT [id number] / Confirmed Asthma, mild intermittent / SNOMED CT 6710316210 / Confirmed Spondylolisthesis, lumbar region / SNOMED CT 1115866353 / Confirmed Osteoarthritis of left knee / SNOMED CT 3731629856 / Confirmed BPPV (benign paroxysmal positional vertigo) / SNOMED CT 925684330 / Confirmed HTN (hypertension) / SNOMED CT 4537624672 / Confirmed Diarrhea / SNOMED CT 438264452 / Confirmed Hypothyroid / SNOMED CT 26518501 / Confirmed Nocturia / SNOMED CT 006193042 / Confirmed All Problems (Selected) Leg length discrepancy / ICD-9-CM 736.81 / Confirmed Knee pain / ICD-9-CM 719.46 / Confirmed Knee pain / SNOMED CT [id number] / Confirmed LBP (low back pain) / SNOMED CT [id number] / Confirmed Cataracts, bilateral / SNOMED CT 757857078 / Confirmed Weight disorder / SNOMED CT 682268130 / Confirmed Lumbar facet joint pain / SNOMED CT 5559383289 / Confirmed Stenosis of lumbosacral spine / SNOMED CT [id number] / Confirmed Asthma, mild intermittent / SNOMED CT 8765120567 / Confirmed Spondylolisthesis, lumbar region / SNOMED CT 5882084721 / Confirmed Osteoarthritis of left knee / SNOMED CT 6944747334 / Confirmed BPPV (benign paroxysmal positional vertigo) / SNOMED CT 695777061 / Confirmed HTN (hypertension) / SNOMED CT 8347336318 / Confirmed Diarrhea / SNOMED CT 294788256 / Confirmed Hypothyroid / SNOMED CT 16997646 / Confirmed Nocturia / SNOMED CT 498619751 / Confirmed. Histories Family History: COPD Mother () Diabetes MGF MGM Unknown Drug dependence Sister () Cardiovascular disease Father () Sister (Two) Stroke MGF Unknown Cancer Unknown Prostate cancer.. Father () Heart attack PGF Depression. Brother (Three) High Blood Pressure Mother () Heart disease Unknown . Social History Social & Psychosocial Habits Alcohol 01/24/2012 Risk Assessment: No Risk 01/24/2012 Use: Current Type: Beer Frequency: 1-2 times per year Employment/School 01/24/2012 Status: Employed Exercise 01/24/2012 Risk Assessment: Regular exercise 01/24/2012 Times per week: 5-6 times/week Exercise type: Walking Substance Abuse 01/24/2012 Risk Assessment: Denies Substance Abuse Tobacco 01/24/2012 Risk Assessment: Denies Tobacco Use . Physical Examination Vital Signs 10/12/2023 13:24 EST Temperature 36.6 DegC Temperature Route Oral Heart Rate 82 bpm Heart Rate Method Radial Respiratory Rate 16 br/min Systolic Blood Pressure 102 mmHg Diastolic Blood Pressure 70 mmHg Cuff Pulse Pressure 32 mmHg SpO2 97 % Measurements from flowsheet : Measurements 10/12/2023 13:28 EST Osteoporosis Screening Tool 2.70 10/12/2023 13:24 EST Height 169.8 cm Patient Weight 86.5 kg Weight 86.500 kg Weight Method Standing Scale Body Mass Index 30 kg/m2 Swink Body Weight 65.8 kg Height/Weight Refused Height/Weight Taken General: Alert and oriented, No acute distress. Eye: Pupils are equal, round and reactive to light, Extraocular movements are intact, Normal conjunctiva. HENT: Normocephalic, Normal hearing, Oral mucosa is moist, No pharyngeal erythema. Neck: Supple, Non-tender, No lymphadenopathy, No thyromegaly. Respiratory: Lungs are clear to auscultation, Respirations are non-labored, Breath sounds are equal. Cardiovascular: Normal rate, Regular rhythm, Soft systolic murmur heard best right upper sternal border. This is consistent with previous examinations here. It does seem little softer today, probablyattributable to his lower than normal for him blood pressure. Occasional ectopy appreciated during extended auscultation; underlying rhythm normal sinus.. Musculoskeletal Normal range of motion. Integumentary: Warm, Dry, Clarinda. Neurologic: Alert, Oriented, Normal sensory. Cognition and Speech: Oriented, Speech clear and coherent. Psychiatric: Cooperative, Appropriate mood & affect. Health Maintenance Health Maintenance Pending (in the next year) Due Adult Social Determinants of Health Screening due 10/12/23 Unknown Frequency Hepatitis C Screening due 10/12/23 One-time only Medicare Annual Wellness Visit due 10/12/23 and every 1 year Due In Future Adult Influenza Vaccine not due until 02/12/24 and every 1 year Satisfied (in the past 1 year) Satisfied Adult Influenza Vaccine on 06/14/23. Satisfied by [facility] Martinez Sharon Body Mass Index on 10/12/23. Satisfied by [facility] Pascual Donna Review / Management Results review: Lab results 09/07/2023 07:13 EST Na-Quest 140 mmol/L K-Quest 4.6 mmol/L Cl-Quest 104 mmol/L CO2-Quest 30 mmol/L BUN-Quest 16 mg/dL Creatinine-Quest 1.09 mg/dL BUN/Creat Ratio-Quest SEE NOTE: (calc) Ca-Quest 9.7 mg/dL eGFR-QST 72 mL/min/1.73m2 Glucose-Qst 97 mg/dL ALT 21 U/L Bilirubin, Total (QST) 0.5 mg/dL Alkaline Phosphatase (ALP) 46 U/L AST 23 U/L Albumin, Serum 4.3 g/dL A/G Ratio-Quest 1.9 (calc) Globulin-Quest 2.3 g/dL (calc) Cholesterol-QST 121 mg/dL HDL Chol-QST 53 mg/dL Non HDL Chol-QST 68 mg/dL (calc) Chol/HDLC Ratio-QST 2.3 (calc) Triglycerides-QST 78 mg/dL LDL Chol-QST 52 mg/dL (calc) TSH (QST) 9.01 mIU/L HI Free T4-Quest 0.9 ng/dL . CBC, urinalysis, coagulation studies reviewed from hospital lab. EKG from 10/03/2023 interpreted as normal sinus/sinus arrhythmia. Impression and Plan Diagnosis Encounter for preoperative assessment (FMD16-PI Z01.818, Discharge, Medical). Elevated TSH (KWH39-RX R79.89, Discharge, Medical). DJD (degenerative joint disease) of knee (FOR28-QN M17.9, Discharge, Medical). Benign essential HTN (VFQ29-BT I10, Discharge, Medical). Acquired hypothyroidism (DSW02-PX E03.9, Discharge, Medical). Plan: Preoperative Exam Reassuring/negative cardiovascular review of systems, normal resting echocardiogram October,. Heis appropriate for the proposed procedure without further testing. Hypothyroidism (new) Continue levothyroxine 25 mcg daily Will check TSH and free T4 approximately 2-4 weeks postoperative Likely will need further titration of his Synthroid thereafter Systolic murmur Murmur is again heard today, although echocardiogram last year showed no significant valvular pathology Does have very mild ascending aortic dilatation (3.8) Will schedule follow-up echocardiogram later this spring/early summer HTN Excellent control BMP completed here in late August 2023 demonstrated preserved renal function and normal serum potassium Lymphocytotic colitis Gastroenterology note reviewed Avoid NSAIDs postoperative Borderline anemia His hemoglobin at the hospital lab was 13.6; while this would be normal according to our lab reference values, was marked as low based on the hospital reference values Nonconcerning but will follow-up; discussed this may improve now that he is on thyroid supplementation; also discussed he may have a mild postoperative drop Recheck CBC when we recheck his TSH; discussed that it may take 3-6 months to normalize . Orders PowerOrders Laboratory: CBC w Platelets and Diff Request (Order): Routine, 10/12/2023 14:18 EST, Requested Timeframe In 4 Weeks Free T4 Request (Order): Routine, 10/12/2023 14:18 EST, Requested Timeframe In 4 Weeks TSH Request (Order): Routine, 10/12/2023 14:18 EST, Requested Timeframe In 4 Weeks Patient Care Ambulatory: Follow Up Appointment Ambulatory (Order): PRN, thyroid/anemia Appointment Type In Office, 20, Follow up With DO Vaughn Franklin J, december Evaluation and Management: [id number] Outpatient Consult Lv 3 (Order): 10/12/2023 14:19 EST, 25, FAMILY MEDICINE, DJD (degenerative joint disease) of knee | Benign essential HTN | Acquired hypothyroidism | Anemia, FS, (30-39 Mins). Electronic Signature on File CC: Sergey Douglas MD [address] [facility] [address] [place] [id number] Electronically Reviewed/Signed by: Altaf Vaughn DO Author Signature Dt/Tm:10/12/2023 02:33 PM Department of Family Medicine [facility] Patient Care team information Care Team Personnel Name: DO Vaughn Franklin J Position: Physician - Family Med Member Role: Lifetime Relationship Address: Address: [facility] [address] [place] [address] Name: DO Ribeiro Kristen M Position: Physician - Family Med Member Role: Lifetime Relationship Address: Address: [address] [place] [address] [address] [place] [address] Care Team Related Persons Name: NONI AGUAYO Address: home [address] [facility] [place], [place] [id number] Name: NONI AGUAYO Address: Address: home [address] [facility] [place], [place] [phone]"
--- OUTSIDE RECORDS SUMMARY | 2023-10-19 11:58 | External Medical Summary | Continuity of Care Document ---
Author Name Unknown Organization [facility] [address] [place], [place] [address] Address [address] [place] [id number] Care Team Providers Care Pantograph Operator Name Role Phone Altaf Vaughn Primary Care Physician [phone] Encounter [facility] [id number] Date(s): 10/03/23 - 10/03/23 [facility] [address] [place] [id number] [facility] [address] [place] [id number] Encounter Diagnosis Osteoarthritis of left knee(Discharge Diagnosis) - 10/03/23 Left knee DJD(Discharge Diagnosis) - 10/03/23 Discharge Disposition: Home or Self Care Attending Physician: CHRISTOPHE Muñoz, Mike Mac Referring Physician: MD Misael, Sergey Stevenson Allergies, Adverse Reactions, Alerts Substance Reaction Severity Status PCN (penicillin) hives Resolved shellfish Gout Moderate Resolved sulfa drugs erythema of skin Active Immunizations Given and Recorded Vaccine Date Status [...] TIMES A DAY NEEDED FOR WHEEZING, Pharmacy: [id number] Start Date: 04/29/22 Status: Ordered amLODIPine 5 mg oral tablet Start: 05/02/23 9:26:00 EDT, See Instructions, Disp# 30 tab, Refills: 11, TAKE 1 TABLET BY MOUTH EVERY DAY, Pharmacy: [id number] Start Date: 05/02/23 Status: [...] 1 TABLET BY MOUTH EVERY DAY, Pharmacy: [id number] Start Date: 05/02/23 Status: Ordered rosuvastatin 5 mg oral tablet Start: 05/02/23 9:24:00 EDT, See Instructions, Disp# 30 tab, Refills: 11, TAKE 1 TABLET BY MOUTH ATBEDTIME, Pharmacy: [id number] Start Date: 05/02/23 Status: Ordered Synthroid 25 mcg (0.025 mg) oral tablet Start: 09/16/23 9:46:00 EST, 1 tab, PO, Daily, Disp# 30 tab, Refills: 3, Pharmacy: [id number] Start Date: 09/16/23 Stop Date: 01/14/24 Status: Ordered Mental Status 10/03/23 Barriers to Learning one year None evide nt Mandatory Health Literacy Documentation Yes Health Literacy Communication Barriers N ever Primary Language Albanian Problem List Condition Confirmation Course Effective Dates [...] Effective Dates Health Status Clinical Service Informant Osteoarthritis of left knee Discharge Diagnosis 10/03/23 Left knee DJD Discharge Diagnosis 10/03/23 Non-Specified Procedures Procedure Date Related Diagnosis Body [...] to cecum normal, repeat colo 10 yeaars. Vital Signs Most recent to oldest [Reference Range]: 1 Height 169.8 cm (10/03/23 7:57 AM) Patient Weight 87 kg (10/03/23 7:57 AM) Body Mass Index 30.17 kg/m2 (10/03/23 7:57 AM) Temperature [36.5-37.9 DegC] 36.5 DegC (10/03/23 7:57 AM) Heart Rate 107 bpm (10/03/23 7:57 AM) Blood Pressure 106/78mmHg (10/03/23 7:57 AM) Cuff Pulse Pressure 28 mmHg (10/03/23 7:57 AM) Social History Social History Type Response Smoking Status Never smoked cigaret juan Sex Ortho Outpt Note * Michele Oliveros: PERFORM, MODIFY Event Display: Ortho Outpt Note Authored Date: [id number] Name:MILTON AGUAYO Patient Number:[id number] :1950 Date of Service:10/03/2023 CHIEF COMPLAINT: s/x consent HPI: Cynthia Alejandra presents today forsurgical consent form signing of his left TKA. He is planned to have surgery on 10/19/2023 for a left TKA. He had colitis recently caused by NSAIDs and can no longer take them. He does not currently take medication for his knee. He hadmultiple questions answered about the operation. He has not had his H&P completed yet. PHYSICAL EXAM: Focus on the patients left lower extremity: Femoral and sciatic nerve function intact. ROM Knee: 0 to 115 , vs 0 to 120 on contralateral side Ligaments intact RADIOGRAPHY: I obtained and personally interpreted 4 views of theleft knee which shows advanced medial osteoarthritis and varus deformity. Retained iliotibial edward in the right tibia. IMPRESSION: 73 year old male with left knee osteoarthritis PLAN: After a lengthy discussion with the patient today regarding my above clinical findings, as well as reviewing their imaging with them, their treatment options of conservative management versus surgical intervention were discussed. - The risks, benefits, and alternatives to surgical intervention were discussed with patient. Allergies reviewed. All questions were answered. Informed consent was signed for left total knee arthroplasty. - They will follow-up to have a pre-operative history and physical examination performed. The patient understood all my instructions and explanation: all their questions were satisfactorilyaddressed. ATTESTATION: I, Michele Oliveros, scribing for and in the presence of, Sergey Douglas, on this date,10/03/2023 08:02:34. Electronic Signature on File Electronically Reviewed/Signed by: Michele Oliveros Author Signature Dt/Tm:10/03/2023 08:19 AM Electronically Reviewed/Signed by: Sergey Douglas MD Cosigner Signature Dt/Tm: 10/03/2023 09:38 AM Postmaster Relief for Clinical Affairs, [facility] Professor in Orthopaedics Fuel Attendant, [facility] Patient Care team information Care Team Personnel Name: DO Vaughn Franklin J Position: Physician - Family Med Member Role: Lifetime Relationship Address: Address: [address] [place] [address] [address] [place] [address] Name: DO Ribeiro Kristen M Position: Physician - Family Med Member Role: Lifetime Relationship Address: Address: [address] [facility] [address] [place] [address] Care Team Related Persons Name: NONI AGUAYO Address: home [address] [facility], [place] [id number] Name: NONI AGUAYO Address: Liliana K[place] Address: home [address] [facility], [place] [id number]
[2023-10-19] MEDS: ONDANSETRON INJ 2 MG/ML 2 ML VIAL IV PRN (12:20)
[2023-10-19] MEDS: ACETAMINOPHEN 500 MG TAB PO SCH (14:58)
--- NOTE | 2023-10-19 17:41 | Orthopedic Progress Note ---
Date of Service October 19, 2023 Assessment & Plan Admission and Anticipated Discharge Date Admission Date: October 19, 2023 Orthopedic Progress Note Afternoon check postop today. He is doing well denies chest pain shortness of breath fever chills nausea vomiting or headache. Vital signs are stable he is afebrile. Neurovascular check from sciatic nerve normal. Postop x-rays look excellent. Assessment doing well continue care pathway discharge home tomorrow.
[2023-10-19] MEDS: SENNA 8.6 MG TAB PO SCH (20:39)
[2023-10-19] MEDS: ROSUVASTATIN CALCIUM 5 MG TAB PO SCH (20:39)
[2023-10-19] MEDS: LORATADINE 10 MG TAB PO SCH (20:39)
[2023-10-20 06:16] LABS: Hematocrit (blood only) 34.6 % (42.0-52.0); Hemoglobin 12.1 g/dl (14.0-18.0); Mean Corpuscular Hemoglobin 32.4 pg (25.0-34.0); Mean Corpuscular Volume 92.5 fL (80.0-100.0); Mean Platelet Volume 9.6 fL (9.4-12.4); Platelet Count 166 K/uL (130-400); RDW Coefficient of Variation 12.4 % (11.5-14.5); Red Blood Count 3.74 M/uL (4.70-6.10); White Blood Count 9.25 K/ul (4.8-10.8)
--- NOTE | 2023-10-20 06:34 | Orthopedic Progress Note ---
Date of Service October 20, 2023 Assessment & Plan Admission and Anticipated Discharge Date Admission Date: October 19, 2023 Orthopedic Progress Note Postop day 1 status post left total knee replacement. Patient is doing well. He is up and doing his exercises. He. He denies chest pain shortness of breath fever chills nausea vomiting or headache. Vital signs are stable he is afebrile. Neurovascular check from sciatic nerve is normal. Wound dressing clean dry and intact. Hematocrit stable at 34. Assessment doing well status post left total knee replacement discharged home today start DVT PE prophylaxis today. Dressing change by physician events and promotions assistant later this morning. Follow-up in 2 weeks.
[2023-10-20 06:40] LABS: BUN Creatinine Ratio 14.4 (10-20); Calcium 8.8 mg/dl (8.6-10.3); Creatinine Clr Calc Pharmacy 54.3 ml/min; Est GFR (African American) 65.8 ml/min; Est GFR (Non-African American) 56.8 ml/min; Potassium 4.6 mmol/L (3.5-5.1)
[2023-10-20] MEDS: APIXABAN 2.5 MG TAB PO SCH (07:46)
[2023-10-20] MEDS: dexAMETHasone 4 MG TAB PO SCH (07:47)
== END 2023-10-20 11:33 | disposition home health service (06) ==
LOC: ASU 05:16 → 3E 05:16